=== PATIENT | female | born 1950 | race Caucasian/White ===

== ENCOUNTER → 2019-09-25 | Outpatient (CLI) | payer OTHER, MEDICAID | LOC: M.ULTRA 07:34 | DX: I65.23 Occlusion and stenosis of bilateral carotid arteries (principal) ==

== ENCOUNTER 2020-11-13 09:28 | Emergency (ER) | payer OTHER, MEDICAID ==
[~2020-11-13] VITALS: Ht 142.2 cm; Wt 77.1 kg
[2020-11-13] MEDS ORDERED: GLUCOPHAGE1000 MG PO (09:48)
[2020-11-13] MEDS ORDERED: ASA81BEC PO (09:48)
[2020-11-13] MEDS ORDERED: LIPITOR10 MG PO (09:48)
[2020-11-13] MEDS ORDERED: NEXIUM 24HR20 M2 PO (09:49)
[2020-11-13] MEDS ORDERED: ZINC50 MG PO (09:49)
[2020-11-13] MEDS ORDERED: COZAAR 25 MG TA25 M2 PO (09:49)
[2020-11-13] MEDS ORDERED: VITAMIN D21250 MC1 PO (09:49)
[2020-11-13] MEDS ORDERED: VITAMIN C500 M1 PO (09:49)
[2020-11-13] MEDS ORDERED: SUPER B-50 COM1 EACH PO (09:50)
[2020-11-13] MEDS ORDERED: MAGNESIUM250 M1 PO (09:50)
[2020-11-13] MEDS ORDERED: CALCIUM500 MG PO (09:50)
[2020-11-13 10:10] LABS: URINE BILIRUBIN NEGATIVE (Negative); URINE BLOOD NEGATIVE (Negative); URINE CLARITY CLEAR; URINE COLOR YELLOW; URINE GLUCOSE-RANDOM TRACE (Negative); URINE KETONES NEGATIVE (Negative); URINE LEUKOCYTES-REFLEX 1+ (Negative); URINE NITRITE-REFLEX NEGATIVE (Negative); URINE PROTEIN TRACE (Negative); URINE SPECIFIC GRAVITY 1.025 (1.005-1.030); URINE UROBILINOGEN 0.2 E.U./dl (0.2-1.0)
[2020-11-13 10:27] LABS: ABSOLUTE EOSINOPHILS 0.2 thou/uL (0.0-0.7); ABSOLUTE LYMPHOCYTES 0.7 thou/uL (0.8-5.3); ABSOLUTE MONOCYTES 1.2 thou/uL (0.0-1.2); ABSOLUTE NEUTROPHILS 6.4 thou/uL (1.6-8.1); BASOPHILS 0.2 %; HEMOGLOBIN 11.7 gm/dL (12.0-15.0); MCH 25.5 pg (26.0-34.0); MCHC 32.6 g/dL (28.0-37.0); MCV 78.1 fL (80.0-100.0); MPV 6.5 fl. (7.2-11.1); NUCLEATED RBCS 0 /100WBC; PLATELET COUNT* 254 thou/uL (150-400); POLYS 75.8 %; RBC 4.61 mil/uL (4.20-5.00); RDW-CV 17.1 % (10.5-14.5); WBC 8.4 thou/uL (4.0-11.0)
[2020-11-13 10:29] LABS: CASTS None Seen /LPF (None Seen); CRYSTALS None Seen /LPF (None Seen); SQUAMOUS 0-3 Few /LPF (0-3); URINE RBC 0-2 Rare /HPF (0-2); URINE WBC-REFLEX 6-15 Few /HPF (0-5)
[2020-11-13 10:30] LABS: INFLUENZA A ANTIGEN Negative (Negative); INFLUENZA B ANTIGEN Negative (Negative)
[2020-11-13 10:37] LABS: CALCIUM 9.3 mg/dL (8.5-10.1); CREATININE 1.1 mg/dL (0.6-1.3)
[2020-11-13 10:47] LABS: ALBUMIN 3.7 g/dL (3.4-5.0); TOTAL BILIRUBIN 0.7 mg/dL (<0.1-1.0); TOTAL PROTEIN 7.8 g/dL (6.4-8.2)
[2020-11-13] MEDS ORDERED: AUGMENTIN 875-1 EACH PO ×2 (11:23→11:24)
[2020-11-13 11:45] VITALS: BP 132/45
--- NOTE | 2020-11-13 14:15 | EKG ---
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 : 1950 Requested By: Raymundo Lyn Order Number: [id number] MD: Arcenio Medina Measurements Intervals [place] Rate: 85 P: 77 NC: 178 QRS: 30 QRSD: 78 T: 53 QT: 377 QTc: 449 Interpretive Statements Sinus rhythm nonspecific st segment changes No previous ECG available for comparison Electronically Signed On 11-13-2020 14:15:31 CDT by Arcenio Medina [email or web address] <ELECTRONICALLY SIGNED> By: Arcenio Medina MD, [facility] 11/13/20 1415 [phone] Arcenio Medina MD, [facility] /EPI
== END 2020-11-13 11:45 | disposition home or self-care (01) ==
LOC: M.ERS 09:28
PROVIDERS: Emergency Medicine Emergency Medical Services
DX: N39.0 Urinary tract infection, site not specified (principal); Z20.822 Contact with and (suspected) exposure to COVID-19; I10 Essential (primary) hypertension; E11.9 Type 2 diabetes mellitus without complications; Z88.8 Allergy status to other drugs, medicaments and biological substances

== ENCOUNTER 2020-11-16 18:25 | Observation (INO) | payer OTHER, MEDICAID ==
[~2020-11-16] VITALS: Ht 142.2 cm; Wt 73.0 kg
[~2020-11-16 18:25] MED LIST: ASA81BEC PO; AUGMENTIN 875-1 EACH PO; CALCIUM500 MG PO; COZAAR 25 MG TA25 M2 PO; GLUCOPHAGE1000 MG PO; LIPITOR10 MG PO; MAGNESIUM250 M1 PO; NEXIUM 24HR20 M2 PO; SUPER B-50 COM1 EACH PO; VITAMIN C500 M1 PO; VITAMIN D21250 MC1 PO; ZINC50 MG PO
[2020-11-16 18:26] VITALS: BP 110/57
[2020-11-16 18:51] LABS: HEMATOCRIT 35.8 % (37.0-47.0); HEMOGLOBIN 12.2 gm/dL (12.0-15.0); MCH 26.4 pg (26.0-34.0); MCHC 34.1 g/dL (28.0-37.0); MCV 77.4 fL (80.0-100.0); MPV 7.4 fl. (7.2-11.1); NUCLEATED RBCS 0 /100WBC; PLATELET COUNT* 160 thou/uL (150-400); RBC 4.62 mil/uL (4.20-5.00); RDW-CV 16.8 % (10.5-14.5); WBC 10.2 thou/uL (4.0-11.0)
[2020-11-16 19:06] LABS: CALCIUM 9.2 mg/dL (8.5-10.1); CREATININE 1.4 mg/dL (0.6-1.3); POTASSIUM 3.3 mmol/L (3.5-5.1)
[2020-11-16 19:08] LABS: APTT 21.4 Seconds (25.0-31.3); PROTIME 11.1 Seconds (9.20-11.50)
[2020-11-16 19:10] LABS: ALBUMIN 3.4 g/dL (3.4-5.0); TOTAL BILIRUBIN 0.6 mg/dL (<0.1-1.0); TOTAL PROTEIN 7.3 g/dL (6.4-8.2)
[2020-11-16 19:37] LABS: URINE BILIRUBIN NEGATIVE (Negative); URINE BLOOD NEGATIVE (Negative); URINE CLARITY CLEAR; URINE COLOR YELLOW; URINE GLUCOSE-RANDOM NEGATIVE (Negative); URINE KETONES NEGATIVE (Negative); URINE LEUKOCYTES-REFLEX NEGATIVE (Negative); URINE NITRITE-REFLEX NEGATIVE (Negative); URINE PROTEIN TRACE (Negative); URINE SPECIFIC GRAVITY 1.025 (1.005-1.030); URINE UROBILINOGEN 0.2 E.U./dl (0.2-1.0)
[2020-11-16 19:41] LABS: ABSOLUTE LYMPHOCYTES 0.5 thou/uL (0.8-5.3); ABSOLUTE MONOCYTES 0.3 thou/uL (0.0-1.2); ABSOLUTE NEUTROPHILS 9.4 thou/uL (1.6-8.1)
[2020-11-16 19:42] LABS: ANISOCYTOSIS Occasional; PLATELET ESTIMATE ADEQUATE
--- NOTE | 2020-11-16 23:15 | NUR ---
PT ADMITTED TO FLOOR ACCOMPANIED BY ER STAFF WITH BELONGINGS. ORIENTED TO ROOM AND CALL LITE. HISTORY OBTAINED AND ASSESSMENT PERFORMED, SEE ADMIT NOTES. PT HAS RED SPLOTCHY FLAT RASH OVER BODY CAUSED BY AUGMENTIN, STATES IT DOES NOT ITCH. DENIES PAIN AT PRESENT, ASKING FOR JELLO. UP WITH ASSIST TO BSC TO VOID, PAINFUL BURNING WHEN VOIDING PT STATES. LAC AND LHAND SL IV. IVF TO BE PLACED ON PUMP FOR INFUSION. CALL LITE IN EASY REACH, BED ALARM ON FOR SAFETY.
[2020-11-16 23:30] VITALS: BP 110/53; BP 113/57
[2020-11-17 04:44] VITALS: BP 131/45
[2020-11-17 04:49] LABS: ABSOLUTE EOSINOPHILS 0.2 thou/uL (0.0-0.7); ABSOLUTE LYMPHOCYTES 0.6 thou/uL (0.8-5.3); ABSOLUTE MONOCYTES 0.8 thou/uL (0.0-1.2); ABSOLUTE NEUTROPHILS 11.9 thou/uL (1.6-8.1); BASOPHILS 0.1 %; EOSINOPHILS 1.3 %; LYMPHOCYTES 4.1 %; MCH 26.1 pg (26.0-34.0); MCHC 33.8 g/dL (28.0-37.0); MCV 77.3 fL (80.0-100.0); MONOCYTES 5.7 %; MPV 7.7 fl. (7.2-11.1); NUCLEATED RBCS 0 /100WBC; PLATELET COUNT* 131 thou/uL (150-400); POLYS 88.8 %; RBC 3.88 mil/uL (4.20-5.00); RDW-CV 16.8 % (10.5-14.5); WBC 13.4 thou/uL (4.0-11.0)
[2020-11-17 04:51] LABS: ALBUMIN 2.6 g/dL (3.4-5.0); CALCIUM 7.8 mg/dL (8.5-10.1); POTASSIUM 3.5 mmol/L (3.5-5.1); TOTAL BILIRUBIN 0.4 mg/dL (<0.1-1.0); TOTAL PROTEIN 6.1 g/dL (6.4-8.2)
[2020-11-17 04:55] LABS: HEMOGLOBIN 10.1 gm/dL (12.0-15.0)
--- NOTE | 2020-11-17 05:22 | NUR ---
NEW ADMIT OVERNIGHT. PT SLEPT OFF AND ON SINCE ADMISSION. UP WITH ASSIST TO BSC TO VOID. LAC IVF INFUSING PER PUMP. TELE SR. ID TO CONSULT. RED SPLOTCHY RASH OVER BODY FROM AUGMENTIN-MEDICATION DC'D. TELE SR. ACCUCHECK, METFORM IN HOLD DUE TO IV CONTRAST. AFEBRILE SINCE ADMIT TO FLOOR. ABLE TO USE CALL LITE AND MAKE NEEDS KNOWN.
[2020-11-17 08:00] VITALS: BP 131/60
--- NOTE | 2020-11-17 11:29 | NUR ---
Nutrition: Pt admitted with severe sepsis. C/o UTI but no bacteria in urine. +vaginal discharge. Good appetiet on CHO controlled diet. Wt: 160#. Labs abd meds noted. No nutrition concerns at this time. Low risk.
[2020-11-17 12:10] VITALS: BP 138/48
--- NOTE | 2020-11-17 12:49 | EKG ---
[place] [address] ELECTROCARDIOGRAM REPORT Name: RASHMITY Room: [address] [place] 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 : 1950 Requested By: Latoya Saavedra Order Number: [id number] MD: Castro Martin Measurements Intervals [place] [employer] Rate: 101 P: 88 CT: 177 QRS: 55 QRSD: 78 T: 61 QT: 326 QTc: 423 Interpretive Statements Sinus tachycardia Minimal ST depression, anterolateral leads Compared to ECG 11/13/2020 09:54:53 ST (T wave) deviation now present Sinus rate has increased Electronically Signed On 11-17-2020 12:49:27 CDT by Castro Martin [email or web address] <ELECTRONICALLY SIGNED> By: Castro Martin MD, FAC 11/17/20 1249 11 11 Castro Martin MD, FAC /EPI
--- NOTE | 2020-11-17 15:23 | NUR ---
PT LIVES [place] IN [place], NELLA BLOOD. PT FIREND PRESENT AT BEDSIDE. PT HAS NO DMES. PT DENIES HX WITH HH AND SNF. PT CONSIDERING HH, OPAL TO SEE. CM TO CONT TO FOLLOW.
--- NOTE | 2020-11-17 16:25 | NUR ---
[facility] Nurse Blanca. Navigator Bedside Assessment Note; Patient admitted with Severe Sepsis and Allegic reaction to antbx. Patient had donnie fever in 103 range and has vaginal discharge. Patient to have manager change consults and further testing. Patient is weak and lives alone, At this stage she is readily accepting of and would love [facility]. Will notify [facility], and follow he hospital course.
[2020-11-17 16:58] VITALS: BP 123/50
[2020-11-17 20:00] VITALS: BP 113/35
[2020-11-18 00:12] VITALS: BP 118/41
--- NOTE | 2020-11-18 01:01 | NUR ---
PT ALERT ORIENTED. UP WITH STD BY ASSIST. 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 NS AT 100MLS/HR. PT STATED SHE WAS ITCHING. DR FARIAS CALLED DOUGShoshana ORDERED AND GIVEN.
[2020-11-18 04:46] LABS: CALCIUM 8.3 mg/dL (8.5-10.1); CREATININE 0.7 mg/dL (0.6-1.3); POTASSIUM 3.2 mmol/L (3.5-5.1)
[2020-11-18 04:51] LABS: HEMATOCRIT 28.5 % (37.0-47.0); HEMOGLOBIN 9.7 gm/dL (12.0-15.0); MCH 26.7 pg (26.0-34.0); MCHC 33.9 g/dL (28.0-37.0); MCV 78.8 fL (80.0-100.0); MPV 7.5 fl. (7.2-11.1); RBC 3.61 mil/uL (4.20-5.00); WBC 8.2 thou/uL (4.0-11.0)
[2020-11-18 04:52] VITALS: BP 119/42
[2020-11-18 08:00] VITALS: BP 132/55
[2020-11-18] MEDS ORDERED: BACTRIM DS TAB1 EACH PO (10:11)
[2020-11-18 13:45] VITALS: BP 114/44; BP 132/55
[2020-11-18 13:46] VITALS: BP 132/55
--- NOTE | 2020-11-18 14:47 | NUR ---
PLAN OF CARE: PLAN FOR PT TO D/C HOME TODAY WITH HH. [facility] REP VISITED PT, AND ACCEPTED PT. [facility] WILL CONTACT THE PT TO ARRANG A TIME TO VISIT. CM INFORMED BY THE RN IN-CHARGE OF THE PT THAT THE PT'S CAREGIVER IS HERE AND DECLINING PT'S DISCHARGE AND REQUESTING TRANSFER. RN DISCUSSED WITH THE PHYSICIAN AND PHYSICIAN INFORMS THAT THE PT IS MEDICALLY STABLE AND PLAN REMAINS FOR PT TO D/C TODAY. CM WILL REMAIN AVAILABLE TO ASSIST AND FOLLOW NEEDED.
== END 2020-11-18 16:28 | disposition home health service (06) ==
LOC: M.ERS 18:25 → M.2W 22:03 → M.TBA-ER 22:03 → M.2W 22:03
PROVIDERS: Family Medicine; Nurse Practitioner Family; ADMIT Internal Medicine; ATTEND Internal Medicine
DX: A41.9 Sepsis, unspecified organism (principal); Z20.822 Contact with and (suspected) exposure to COVID-19; E87.2 Acidosis; N76.0 Acute vaginitis; E86.0 Dehydration; N39.0 Urinary tract infection, site not specified; Z79.899 Other long term (current) drug therapy

== ENCOUNTER 2021-07-07 14:46 | Emergency (ER) | payer OTHER, MEDICAID ==
[~2021-07-07] VITALS: Ht 142.2 cm; Wt 74.8 kg
[~2021-07-07 14:46] MED LIST changes: +BACTRIM DS TAB1 EACH PO
[2021-07-07 15:45] LABS: INFLUENZA A ANTIGEN Negative (Negative); INFLUENZA B ANTIGEN Negative (Negative)
[2021-07-07 16:08] VITALS: BP 152/55
== END 2021-07-07 16:33 | disposition home or self-care (01) ==
LOC: M.ERS 14:46
PROVIDERS: Emergency Medicine
DX: U07.1 COVID-19 (principal); I10 Essential (primary) hypertension; E11.9 Type 2 diabetes mellitus without complications; E78.5 Hyperlipidemia, unspecified; K21.9 Gastro-esophageal reflux disease without esophagitis; Z90.710 Acquired absence of both cervix and uterus; Z90.49 Acquired absence of other specified parts of digestive tract; Z90.89 Acquired absence of other organs; Z79.899 Other long term (current) drug therapy; Z88.0 Allergy status to penicillin; Z88.2 Allergy status to sulfonamides